=== PATIENT | female | born 1960 | race Caucasian/White ===

== ENCOUNTER 2016-08-31 10:43 | Emergency (ER) | payer OTHER ==
[2016-08-31] MEDS ORDERED: Sodium Chloride 0.9% 10 ML Syringe FLUSH PRN (11:06)
[2016-08-31] MEDS ORDERED: Ondansetron 4 MG/2 ML SDV IVPUSH ONE (11:06)
[2016-08-31] MEDS ORDERED: HYDROmorphone 1 MG/ML Syringe IVPUSH ONE (11:06)
--- NOTE | 2016-08-31 11:06 | EDM.PDOC ---
ED HPI GENERAL MEDICAL PROBLEM - General Chief Complaint: Upper Extremity Injury/Pain Stated Complaint: Elbow injury Time Seen by Provider: 08/31/16 10:55 Source of Information: Reports: Patient, RN Notes Reviewed History Limitations: Reports: No Limitations - History of Present Illness INITIAL COMMENTS - FREE TEXT/NARRATIVE: 56 year old female presents to the ED via [facility] due to right elbow pain and deformity. She tripped over a garden hose, causing her to fall. She is unsure how she landed but feels she tried to catch herself with her right arm. She denies numbness or tingling. She denies head injury, LOC, neck pain, chest wall pain, or abdominal pain. Denies additional injury. She was given Dilaudid en route. Treatments CROSS TIE MAKER: Reports: IV/IO, Oxygen, Other (see below) Other Treatments CROSS TIE MAKER: Dilaudid and Zofran Right Elbow Pain Score (Numeric/FACES): 5 - Related Data Allergies Allergy/AdvReac Type Severity Reaction Status Date / Time food allergies Allergy Airway Uncoded 08/31/16 10:55 Tightness Home Meds: Home Meds Levothyroxine 200 mcg PO ACBREAKFAST 06/27/14 [History] Social & Family History - Tobacco Use Smoking Status *Q: Never Smoker Second Hand Smoke Exposure: No - Alcohol Use Days Per Week of Alcohol Use: 0 - Recreational Drug Use Recreational Drug Use: No Review of Systems - Review of Systems Review Of Systems: See Below Respiratory: Reports: No Symptoms. Denies: Shortness of Breath Cardiovascular: Reports: No Symptoms. Denies: Chest Pain GI/Abdominal: Reports: No Symptoms. Denies: Abdominal Pain Musculoskeletal: Reports: Arm Pain, Joint Pain. Denies: Neck Pain Skin: Reports: No Symptoms. Denies: Wound Neurological: Denies: Headache, Numbness, Paresthesia, Tingling, Weakness ED EXAM, GENERAL - Physical Exam Exam: See Below Exam Limited By: No Limitations General Appearance: Alert, WD/WN, Anxious, Mild Distress Neck: Normal Inspection, Supple, Non-Tender, Full Range of Motion. No: Tender Midline Respiratory/Chest: No Respiratory Distress, Lungs Clear Cardiovascular: Regular Rate, Rhythm Extremities: Other (On arrival, the patient is immobilized with a temporary splint and sling/swath. There is notable bony point tenderness to elbow with deformity noted. There is no bony tenderness to the shoulder, humerus, wrist, or hand. CMS is intact distal to injury. ) Neurological: Alert, Oriented, Normal Cognition Skin Exam: Warm, Dry, Intact Course - Vital Signs Last Recorded V/S: Last Vital Signs Temp 97.4 F 08/31/16 12:25 Pulse 65 08/31/16 13:07 Resp 15 08/31/16 13:07 BP 121/78 08/31/16 13:07 Pulse Ox 94 L 08/31/16 13:07 - Orders/Labs/Meds Orders: Active Orders 24 hr Category Date Time Status Peripheral IV Care [RC] . DIRECTED Care 08/31/16 11:06 Active Elbow wo Cont Rt [CT] Stat Exams 08/31/16 14:42 Taken Sodium Chloride 0.9% [Saline Flush] Med 08/31/16 11:06 Active 10 ml FLUSH ASDIRECTED PRN Peripheral IV Insertion Adult [OM.PC] Stat Oth 08/31/16 11:06 Ordered Medication Orders Sodium Chloride (Saline Flush) 10 ml FLUSH ASDIRECTED PRN PRN Reason: Keep Vein Open Last Admin: 08/31/16 11:18 Dose: 10 ml Meds: Medications Generic Name Dose Route Start Last Admin Trade Name Freq PRN Reason Stop Dose Admin Sodium Chloride 10 ml 08/31/16 11:06 08/31/16 11:18 Saline Flush FLUSH 10 ml ASDIRECTED PRN Administration Keep Vein Open Discontinued Medications Generic Name Dose Route Start Last Admin Trade Name Freq PRN Reason Stop Dose Admin Fentanyl Confirm 08/31/16 12:32 Sublimaze Administered 08/31/16 12:33 Dose 100 mcg .ROUTE .STK-MED ONE Fentanyl 50 mcg 08/31/16 13:45 08/31/16 13:56 Sublimaze IVPUSH 08/31/16 13:46 50 mcg ONETIME ONE Administration Hydromorphone HCl 1 mg 08/31/16 11:06 08/31/16 11:16 Dilaudid IVPUSH 08/31/16 11:07 1 mg ONETIME ONE Administration Lidocaine HCl Confirm 08/31/16 12:31 Xylocaine-Mpf 1% Administered 08/31/16 12:32 Dose 6 mls @ as directed .ROUTE .STK-MED ONE Lactated Ringer's Confirm 08/31/16 12:31 Ringers, Lactated Administered 08/31/16 12:32 Dose 1,000 mls @ as directed .ROUTE .STK-MED ONE Metoclopramide HCl 5 mg 08/31/16 15:20 08/31/16 15:32 Reglan IVPUSH 08/31/16 15:21 5 mg ONETIME ONE Administration Midazolam HCl Confirm 08/31/16 12:32 Versed 1 Mg/Ml Administered 08/31/16 12:33 Dose 2 mg .ROUTE .STK-MED ONE Ondansetron HCl 4 mg 08/31/16 11:06 08/31/16 11:14 Zofran IVPUSH 08/31/16 11:07 4 mg ONETIME ONE Administration Propofol Confirm 08/31/16 12:31 Diprivan 20 Ml Administered 08/31/16 12:32 Dose 200 mg .ROUTE .STK-MED ONE - Re-Assessments/Exams Free Text/Narrative Re-Assessment/Exam: 08/31/16 1145 X-ray reveals dislocation of right elbow. No fractures appreciated. X-ray reported that proper positioning was difficult due to pain. The position of the dislocation appears to be displaced laterally. This was reviewed with Dr. Portillo and he also examined the patient. Anesthesia has been called in for conscious sedation and subsequently reduction of the dislocation. Last PO intake was around 730 am, she ate toast. 08/31/16 13:30 Reduction of right elbow dislocation was performed by Dr. Portillo and myself. The procedure and conscious sedation went well. Post-reduction films revealed a widened joint space. Dr. Portillo spoke to Dr. De La Garza who also reviewed the x- rays. He said the joint was not completely reduced and recommended that we have the patient lie on her stomach and apply 5 lb weights to help reduce the joint. He said if this did not help, he recommends CT of the elbow. 08/31/16 1440 The patient tolerated the traction with 5 lbs of weight well. After 1 hour, the traction was removed. The patient continues to have significant pain with movement and there is a small amount of crepitus noted with movement. Will proceed with CT as recommended by Dr. De La Garza. 08/31/[address] Adame. He reports good alignment per CT. There are small chip fractures and fluid within the joint space noted. Please see full report. These findings were discussed with Dr. Portillo. He recommends long arm splint and f/u with Dr. De La Garza in 2-3 days. She was placed in a long-arm, volar splint from mid- shaft of humerus to her fingers. She was also placed in a sling. She tolerated the procedure well. Neurovascular status has remained intact throughout her stay. She had reported some numbness and tingling to her 4th and 5th fingers prior to reduction but this resolved after reduction. Capillary refill and pulses remained normal throughout her stay. The patient and family were made aware of findings and plan of care. Prescription for Percocet sent to [facility]. Departure - Departure Time of Disposition: 16:16 Disposition: Home, Self-Care 01 Condition: good Clinical Impression: Elbow dislocation Qualifiers: Encounter type: initial encounter Laterality: right Qualified Code(s): S53.104A - Unspecified dislocation of right ulnohumeral joint, initial encounter Elbow fracture, right Qualifiers: Encounter type: initial encounter Fracture type: closed Qualified Code(s): S42.401A - Unspecified fracture of lower end of right humerus, initial encounter for closed fracture - Discharge Information Instructions: Elbow Fracture, Simple, Elbow Dislocation, [id number] Referrals: PCP,Not In Area [Primary Care Provider] - Forms: ED Department Discharge Additional Instructions: Rest, ice and elevate Wear splint at all times Do not get the splint wet Wear sling as tolerated, may remove to elevate and ice your arm. Ibuprofen 600mg every 6-8 hours Tylenol 650mg every 4-6 hours as needed for less severe pain Percocet (oxycodone/apap) 1-2 tabs every 4-6 hours as needed for more severe pain You can take 1/2 tab during the day to avoid over sedation No driving for at least 8 hours after taking Percocet Follow-up with Dr. De La Garza in 2-3 days Return to ER with any worsening of pain, numbness, tingling, loss of capillary refill (color of nail beds) or additional concerns - My Orders Last 24 Hours: My Active Orders 08/31/16 11:06 Peripheral IV Care [RC] . DIRECTED Sodium Chloride 0.9% [Saline Flush] 10 ml FLUSH ASDIRECTED PRN Peripheral IV Insertion Adult [OM.PC] Stat 08/31/16 14:42 Elbow wo Cont Rt [CT] Stat - Assessment/Plan Last 24 Hours: My Active Orders 08/31/16 11:06 Peripheral IV Care [RC] . DIRECTED Sodium Chloride 0.9% [Saline Flush] 10 ml FLUSH ASDIRECTED PRN Peripheral IV Insertion Adult [OM.PC] Stat 08/31/16 14:42 Elbow wo Cont Rt [CT] Stat
--- NOTE | 2016-08-31 12:08 | PCM.PREANE ---
Preanesthetic Assessment - Anesthesia/Transfusion/Family Hx Anesthesia History: Prior Anesthesia Without Reaction Type of Anesthesia Reaction: Excessive Nausea/Vomiting Family History of Anesthesia Reaction: No Transfusion History: No Prior Transfusion(s) Intubation History: Unknown - Review of Systems General: No Symptoms Pulmonary: No Symptoms Cardiovascular: No Symptoms Gastrointestinal: No symptoms Neurological: No Symptoms, Tingling (right fingers of affected displaced elbow.) Other: Reports: Thyroid Problems (hypothyroid) - Physical Assessment NPO Status Date: 08/31/16 NPO Status Time: 07:30 Pulse: 70 O2 Sat by Pulse Oximetry: 95 Respiratory Rate: 15 Blood Pressure: 118/83 Temperature: 36.3 C Vital Signs: Last Vital Signs Temp 36.3 C 08/31/16 10:56 Pulse 70 08/31/16 12:01 Resp 15 08/31/16 12:01 BP 118/83 08/31/16 12:01 Pulse Ox 95 08/31/16 12:01 Height: 1.63 m Weight: 79.379 kg ASA Class: 1E Mental Status: Alert & Oriented x3 Airway Class: Mallampati = 2 Dentition: Reports: Normal Dentition, Redkey(s), Caries Thyro-Mental Finger Breadths: 3 Mouth Opening Finger Breadths: 3 ROM/Head Extension: Full Lungs: Clear to auscultation, Normal respiratory effort Cardiovascular: Regular Rate, Regular Rhythm, No Murmurs - Allergies Allergies/Adverse Reactions: Allergies Allergy/AdvReac Type Severity Reaction Status Date / Time food allergies Allergy Airway Uncoded 08/31/16 10:55 Tightness - Anesthesia Plan Pre-Op Medication Ordered: None - Acknowledgements Anesthesia Type Planned: MAC Pt an Appropriate Candidate for the Planned Anesthesia: Yes Alternatives and Risks of Anesthesia Discussed w Pt/Guardian: Yes Pt/Guardian Understands and Agrees with Anesthesia Plan: Yes PreAnesthesia Questionnaire HEENT History: Reports: Impaired Vision Musculoskeletal History: Reports: Fracture Other Musculoskeletal History: right foot Endocrine/Metabolic History: Reports: Hypothyroidism - Past Surgical History Female Surgical History: Reports: Hysterectomy, Other (See Below) Other Female Surgeries/Procedures: bladder sling removal - SUBSTANCE USE Smoking Status *Q: Never Smoker Second Hand Smoke Exposure: No Days Per Week of Alcohol Use: 0 Recreational Drug Use History: No - HOME MEDS Home Medications: Home Meds Levothyroxine 200 mcg PO ACBREAKFAST 06/27/14 [History] - CURRENT (IN HOUSE) MEDS Current Meds: Current Medications Sodium Chloride (Saline Flush) 10 ml FLUSH ASDIRECTED PRN PRN Reason: Keep Vein Open Last Admin: 08/31/16 11:18 Dose: 10 ml Discontinued Medications Hydromorphone HCl (Dilaudid) 1 mg IVPUSH ONETIME ONE Stop: 08/31/16 11:07 Last Admin: 08/31/16 11:16 Dose: 1 mg Ondansetron HCl (Zofran) 4 mg IVPUSH ONETIME ONE Stop: 08/31/16 11:07 Last Admin: 08/31/16 11:14 Dose: 4 mg
[2016-08-31] MEDS ORDERED: Propofol 200 MG/20 ML SDV ONE (12:31)
[2016-08-31] MEDS ORDERED: Lidocaine 1% 6 ML ONE (12:31)
[2016-08-31] MEDS ORDERED: Lactated Ringers 1,000 ML ONE (12:31)
[2016-08-31] MEDS ORDERED: Midazolam 1 MG/ML 2 ML SDV ONE (12:32)
[2016-08-31] MEDS ORDERED: fentaNYL 100 MCG/2 ML SDV ONE (12:32)
--- NOTE | 2016-08-31 12:43 | PCM48HPAN ---
Post Anesthesia Note - EVALUATION WITHIN 48HRS OF ANESTHETIC Vital Signs in Normal Range: Yes Patient Participated in Evaluation: Yes Respiratory Function Stable: Yes Airway Patent: Yes Cardiovascular Function Stable: Yes Hydration Status Stable: Yes Pain Control Satisfactory: Yes Nausea and Vomiting Control Satisfactory: Yes Mental Status Recovered: Yes
[2016-08-31 13:08] VITALS: BP 121/78
--- NOTE | 2016-08-31 13:19 | CR ---
Right elbow: 2 views of the right elbow were obtained. Dislocation is seen of the elbow. Soft tissue swelling and joint effusion is seen. Impression: 1. Dislocated right elbow. Diagnostic code #5
--- NOTE | 2016-08-31 13:19 | CR ---
Right elbow: 2 views of the right elbow were obtained. Comparison: Previous elbow study performed earlier on the same day (11:21 AM). Widening of the joint is seen presumably due to joint effusion. Radius is slightly subluxed in a lateral direction. The ulna appears normal in alignment other than the joint space being widen. Joint effusion is seen on the lateral view with elevation of the fat pad. Soft tissue calcification is seen which is felt compatible with minimal cortical avulsion injuries. Soft tissue swelling is also present. Impression: 1. Widening of the elbow joint most likely from joint effusion. 2. Slightly subluxed radius in a lateral direction. Alignment is otherwise within normal limits. 3. Other incidental findings as described above. Diagnostic code #3
[2016-08-31] MEDS ORDERED: fentaNYL 100 MCG/2 ML SDV IVPUSH ONE (13:45)
[2016-08-31] MEDS ORDERED: Metoclopramide 10 MG/2 ML SDV IVPUSH ONE (15:20)
--- NOTE | 2016-09-02 09:30 | CT ---
CT right elbow Technique: Multiple axial images of the right elbow obtained. Comparison: Study compared to previous elbow exam's performed earlier on the same day. Findings: Alignment of the elbow is within normal limits. Joint space is slightly widened likely representing joint effusion. Multiple small bony densities are seen off the posterior capitellum compatible with multiple small cortical avulsion fracture fragments. Small calcification compatible with minimal fracture fragment seen anteriorly at the radiocapitellar joint. There are several small fractures being seen off the coronoid process. There is 1 small bony fragment being seen within the joint space between the ulna and trochlea. This measures about 4.5 mm in size. Small fracture identified off the posterior olecranon process. Diffuse soft tissue swelling is noted. Impression: 1. Alignment of the elbow is within normal limits. Joint space slightly widened compatible with joint effusion. 2. Multiple small fracture fragments caused by a cortical fracture within the posterior capitellum. Small fracture fragment is seen anteriorly within the radiocapitellar joint. 3. Small fracture fragments off the coronoid process of the proximal ulna. One fracture fragment is within the joint space between the humerus and trochlea. 4. Diffuse soft tissue swelling. Diagnostic code #3 MTDD
== END 2016-08-31 16:48 | disposition home or self-care (01) ==
LOC: JD.ED 10:43
DX: S53.104A Unspecified dislocation of right ulnohumeral joint, initial encounter (principal); S42.401A Unspecified fracture of lower end of right humerus, initial encounter for closed fracture; Z91.018 Allergy to other foods; W01.0XXA Fall on same level from slipping, tripping and stumbling without subsequent striking against object, initial encounter
CPT/HCPCS: 24600; 29105; 73070; 73200; 96374; 96375; 99152; 99153; 99285; J1170; J2250; J2405; J2765; J3010; J7050; J7120; 01730; 99284; J2704

== ENCOUNTER 2018-05-06 16:31 | Emergency (ER) | payer OTHER ==
[2018-05-06 16:41] VITALS: BP 133/86
[2018-05-06] MEDS ORDERED: Sodium Chloride 0.9% 10 ML Syringe FLUSH PRN (16:47)
[2018-05-06] MEDS ORDERED: Gadobenate Dimeglumine 529 MG/ML 20 ML SDV IVPUSH ONE (17:16)
[2018-05-06] MEDS ORDERED: Sodium Chloride 0.9% 100 ML IV SCH (17:30)
--- NOTE | 2018-05-06 17:35 | MR ---
MRI angiogram of brain Technique: [id number] MR angiogram sequences were obtained centered to the [place]. Multiple MIP images were obtained in multiple projections. Comparison: No prior intracranial imaging is available. Findings: Distal vertebral arteries and carotid siphons appear patent. Basilar artery appears within normal limits. Both posterior cerebral arteries are patent. Middle cerebral arteries and anterior cerebral arteries appear patent. No areas of stenosis are seen. No discrete aneurysm is identified. Impression: 1. No abnormality is identified on MR angiogram study of the brain centered to the [place]. Diagnostic code #1
--- NOTE | 2018-05-06 18:12 | EDM.PDOC ---
ED HPI GENERAL MEDICAL PROBLEM - General Chief Complaint: Neurological Problem Stated Complaint: DIZZY Time Seen by Provider: 05/06/18 16:38 Source of Information: Reports: Patient, Provider, RN Notes Reviewed - History of Present Illness INITIAL COMMENTS - FREE TEXT/NARRATIVE: 57-year-old female with onset of mild vertigo about 5 days ago. She also did see her chiropractor about 5 days ago and did have some type of neck adjustment. That did not help. She was started on meclizine Thursday 3 days ago. Spine fat and time her dizziness and vertigo has continued to worsen. Movement makes her very unsteady on her feet with vertigo. She does feel much better if she lies still and does not move her head. She was evaluated at the clinic this afternoon labs have come back relatively normal. I was notified a short time ago that her TSH is very low. I see that she is on thyroid medication. She does deny history of hypertension, diabetes, coronary artery disease. She is never had anything like this before. She has not been recently ill with upper respiratory infections sinus trouble or anything of that nature. Headache Pain Score (Numeric/FACES): 5 - Related Data Allergies Allergy/AdvReac Type Severity Reaction Status Date / Time food allergies Allergy Airway Uncoded 08/31/16 10:55 Tightness Home Meds: Home Meds Levothyroxine 137 mcg PO ACBREAKFAST 06/27/14 [History] Past Medical History HEENT History: Reports: Impaired Vision Musculoskeletal History: Reports: Fracture Other Musculoskeletal History: right foot Endocrine/Metabolic History: Reports: Hypothyroidism - Past Surgical History Female Surgical History: Reports: Hysterectomy, Other (See Below) Other Female Surgeries/Procedures: bladder sling removal Social & Family History - Family History Family Medical History: Noncontributory - Tobacco Use Smoking Status *Q: Unknown Ever Smoked - Caffeine Use Caffeine Use: Reports: Other ED ROS GENERAL - Review of Systems Review Of Systems: See Below Constitutional: Denies: Fever, Chills, Diaphoresis HEENT: Denies: Ear Discharge, Ear Pain, Rhinitis, Sinus Problem, Throat Pain Respiratory: Denies: Shortness of Breath Cardiovascular: Denies: Chest Pain GI/Abdominal: Denies: Abdominal Pain, Diarrhea, Vomiting Musculoskeletal: Denies: Neck Pain, Shoulder Pain, Arm Pain Skin: Reports: No Symptoms Neurological: Reports: Dizziness. Denies: Headache, Numbness, Tingling, Trouble Speaking, Difficulty Walking, Weakness ED EXAM, DIZZINESS - Physical Exam Exam: See Below General Appearance: Alert, No Apparent Distress Eye Exam: Bilateral Eye: PERRL Ears: Normal External Exam Nose: Normal Inspection Throat/Mouth: Normal Inspection, Normal Oropharynx Head Exam: Atraumatic. No: Facial Swelling Vertigo: worsens with head to L, worsens with head to R Neck: Supple, Other Respiratory/Chest: No Respiratory Distress (No swelling or tenderness), Lungs Clear, Normal Breath Sounds Cardiovascular: Regular Rate, Rhythm GI/Abdominal: Soft, Non-Tender Neurological: Alert, No Motor/Sensory Deficits, Oriented x 3, Other (Finger-to- nose testing normal) Extremities: Normal Inspection, Normal Range of Motion. No: Pedal Edema, Leg Pain Skin Exam: Warm, Dry, Normal Color Course - Vital Signs Last Recorded V/S: Last Vital Signs Temp 97.1 F 05/06/18 16:39 Pulse 65 05/06/18 16:39 Resp 18 05/06/18 16:39 BP 133/86 05/06/18 16:39 Pulse Ox 95 05/06/18 16:39 - Orders/Labs/Meds Orders: Active Orders 24 hr Category Date Time Status Peripheral IV Care [RC] . DIRECTED Care 05/06/18 16:47 Active Sodium Chloride 0.9% [Normal Saline] 100 ml Med 05/06/18 17:30 Active IV ASDIRECTED Sodium Chloride 0.9% [Saline Flush] Med 05/06/18 16:47 Active 10 ml FLUSH ASDIRECTED PRN Peripheral IV Insertion Adult [OM.PC] Stat Oth 05/06/18 16:47 Ordered Medication Orders Sodium Chloride (Normal Saline) 100 mls @ 3 mls/sec IV ASDIRECTED MARIA DE JESUS Last Admin: 05/06/18 17:42 Dose: 3 mls/sec Sodium Chloride (Saline Flush) 10 ml FLUSH ASDIRECTED PRN PRN Reason: Keep Vein Open Last Admin: 05/06/18 16:55 Dose: 10 ml Meds: Medications Generic Name Dose Route Start Last Admin Trade Name Freq PRN Reason Stop Dose Admin Sodium Chloride 100 mls @ 3 mls/sec 05/06/18 17:30 05/06/18 17:42 Normal Saline IV 3 mls/sec ASDIRECTED MARIA DE JESUS Administration Sodium Chloride 10 ml 05/06/18 16:47 05/06/18 16:55 Saline Flush FLUSH 10 ml ASDIRECTED PRN Administration Keep Vein Open Discontinued Medications Generic Name Dose Route Start Last Admin Trade Name Thao PRN Reason Stop Dose Admin Gadobenate Dimeglumine 20 ml 05/06/18 17:16 05/06/18 17:43 Multihance IVPUSH 05/06/18 17:17 20 ml ONETIME ONE Administration - Re-Assessments/Exams Free Text/Narrative Re-Assessment/Exam: 05/06/18 19:04 MR angiogram of neck was normal except for uncertain narrowing of the left subclavian artery. T [place]andez arteries and carotid arteries were patent with no apparent abnormality, see radiology report for details MRI brain with and without contrast, no acute abnormalities, see radiology report for details. MR angiogram head also no apparent abnormality. Patient actually is doing better here in the ED. She is moving her head around voluntarily quite a lot without apparent if occult. She states she is better now than what she had been earlier today. She states she is sleepy from the meclizine. When asked about dosage she states she is taking 25 mg every 4 hours, not sure how many tablets but at least 4 per day. That alone is certainly adding to her dizziness and drowsiness , I'm going to have her back off to 25 mg twice a day. Her CBC and chemistries were normal. TSH very low at 0.11. She states that her TSH has been extremely low for the last several months having been extremely high. Her thyroid medication has been cut back quite a lot by her provider out of [place]. T3 and T4 pending. Did check left and right arm blood pressures and they are essentially identical. Discharge instructions as documented. Departure - Departure Time of Disposition: 18:59 Disposition: Home, Self-Care 01 Condition: Fair Clinical Impression: Labyrinthitis Qualifiers: Laterality: unspecified laterality Qualified Code(s): H83.09 - Labyrinthitis, unspecified ear - Discharge Information Instructions: Labyrinthitis, [id number] Referrals: Bettie Gu PA-C [Primary Care Provider] - Forms: ED Department Discharge Additional Instructions: Reduce your frequency of meclizine to 25 mg twice daily. Drink plenty of water to maintain hydration. Move very slowly and carefully when standing or walking. Your symptoms of dizziness and vertigo should resolve over the next 2-3 days. Follow-up clinic Thursday or Thursday if not getting back to normal as expected. Call Mary Gu at clinic tomorrow for further advice regarding thyroid medication dosage. Return to ED as needed if symptoms worsening in any way. - My Orders Last 24 Hours: My Active Orders 05/06/18 16:47 Peripheral IV Care [RC] . DIRECTED Sodium Chloride 0.9% [Saline Flush] 10 ml FLUSH ASDIRECTED PRN Peripheral IV Insertion Adult [OM.PC] Stat 05/06/18 17:30 Sodium Chloride 0.9% [Normal Saline] 100 ml IV ASDIRECTED - Assessment/Plan Last 24 Hours: My Active Orders 05/06/18 16:47 Peripheral IV Care [RC] . DIRECTED Sodium Chloride 0.9% [Saline Flush] 10 ml FLUSH ASDIRECTED PRN Peripheral IV Insertion Adult [OM.PC] Stat 05/06/18 17:30 Sodium Chloride 0.9% [Normal Saline] 100 ml IV ASDIRECTED
--- NOTE | 2018-05-06 18:18 | MR ---
MR angiogram of neck Technique: MR angiogram study was obtained of the neck after intravenous contrast. Multiple MIP images were obtained. Findings: Vertebral arteries are patent without focal stenosis. Common carotid arteries are patent. Internal carotid arteries appear patent with no significant stenosis. External carotid arteries are also patent. There is narrowing of the subclavian artery on the left side. Right subclavian artery is normal. Impression: 1. Narrowing of the left subclavian artery. Uncertain if this is real or artifact. If real the patient's left sided blood pressure should be decreased as compared to the right side. 2. Other portions of the MR angiogram study of the neck appear unremarkable. Diagnostic code #3
--- NOTE | 2018-05-06 18:21 | MR ---
MRI brain (without and with intravenous contrast) Technique: T1 sagittal; T2, T2 FLAIR, T1 and diffusion axial; T1 FLAIR coronal; diffusion coronal and axial images; post gadolinium T1 axial and post gadolinium T1 FLAIR coronal images were obtained. Comparison: No prior intracranial imaging. Findings: Ventricles along with basal cisterns and sulci over the convexities are within normal limits for the patient's age. Normal signal void is seen within the major cerebral arteries within the skull base. Mild mucosal thickening is seen within the right frontal and anterior right ethmoid sinus. Other sinuses are clear. Small area of increased signal is noted adjacent to the right frontal white matter within the posterior right frontal region. No other abnormal signal is seen within the brain parenchyma. No acute diffusion abnormalities are seen. No abnormal enhancement is seen. Internal auditory canals appear without abnormal enhancement. Cerebellopontine angle cisterns show no mass. No cerebellar abnormality is seen. Impression: 1. Single area of increased signal seen within the posterior right frontal white matter in a periventricular location. This shows no abnormal enhancement and is therefore felt to be old and incidental. 2. No acute diffusion abnormalities are seen. No abnormal enhancement is identified. 3. Slight sinus findings which are felt to be incidental. Diagnostic code #2
== END 2018-05-06 19:06 | disposition home or self-care (01) ==
LOC: JD.ED 16:31
DX: H83.09 Labyrinthitis, unspecified ear (principal); Z91.018 Allergy to other foods
CPT/HCPCS: 70544; 70548; 70553; 99284; A9577; J7030; 99283